=== PATIENT | female | born 1960 ===

== ENCOUNTER 2023-06-10 05:42 | Day surgery (SDC) | payer MEDICARE ==
[2023-06-10] MEDS ORDERED: Dextrose 5%-0.45% NaCl 1,000 ML IV SCH (06:00)
[2023-06-10] MEDS ORDERED: Midazolam 1 MG/ML 2 ML SDV ONE (06:14)
[2023-06-10] MEDS ORDERED: fentaNYL 100 MCG/2 ML SDV ONE (06:15)
[2023-06-10] MEDS ORDERED: fentaNYL 100 MCG/2 ML SDV IV ONE ×2 (06:56→06:57)
[2023-06-10] MEDS ORDERED: Midazolam 1 MG/ML 2 ML SDV IV ONE ×2 (06:57→06:58)
== END 2023-06-10 08:40 | disposition home or self-care (01) ==
LOC: DL.ENDO 05:42
PROVIDERS: ATTEND Internal Medicine Gastroenterology
DX: K29.50 Unspecified chronic gastritis without bleeding (principal); F41.1 Generalized anxiety disorder; Z79.899 Other long term (current) drug therapy
CPT/HCPCS: 87077; 88305; J2250; J3010; J7042

== ENCOUNTER 2023-06-13 06:46 | Day surgery (SDC) | payer MEDICARE, OTHER ==
[~2023-06-13 06:46] MED LIST: Dextrose 5%-0.45% NaCl 1,000 ML IV SCH
[2023-06-13] MEDS ORDERED: fentaNYL 100 MCG/2 ML SDV ONE (07:02)
[2023-06-13] MEDS ORDERED: Midazolam 1 MG/ML 2 ML SDV ONE (07:02)
[2023-06-13] MEDS ORDERED: fentaNYL 100 MCG/2 ML SDV IV ONE ×2 (07:51→07:52)
[2023-06-13] MEDS ORDERED: Midazolam 1 MG/ML 2 ML SDV IV ONE ×6 (07:52→08:00)
== END 2023-06-13 09:34 | disposition home or self-care (01) ==
LOC: DL.ENDO 06:46
PROVIDERS: ATTEND Internal Medicine Gastroenterology
DX: Z12.11 Encounter for screening for malignant neoplasm of colon (principal); K57.30 Diverticulosis of large intestine without perforation or abscess without bleeding; F41.1 Generalized anxiety disorder; Z79.899 Other long term (current) drug therapy
CPT/HCPCS: G0121; J2250; J3010; J7042